=== PATIENT | female | born 1980 | race Caucasian/White ===

== ENCOUNTER 2023-06-15 10:30 | Outpatient (CLI) | payer BC, OTHER, SELFPAY ==
[2023-06-18 12:26] LABS: Immunoglobulin G, Serum 1039 mg/dL (600-1640); Immunoglobulin G1 607 mg/dL (382-929); Immunoglobulin G2 368 mg/dL (241-700); Immunoglobulin G3 57 mg/dL (22-178); Immunoglobulin G4 73.7 mg/dL (4.0-86.0)
[2023-06-19 05:21] LABS: Immunoglobulin A 218 mg/dL (47-310); Immunoglobulin G 1086 mg/dL (600-1640); Immunoglobulin M 90 mg/dL (50-300)
== END 2023-06-15 10:31 | disposition home or self-care (01) ==
LOC: ANHLAB 10:34
PROVIDERS: PCP Family Medicine; Visit Provider Nurse Practitioner Family
DX: B99.9 Unspecified infectious disease (principal)
CPT/HCPCS: 36415; 82784; 82787